=== PATIENT | male | born 1975 | race African-American/Black ===

== ENCOUNTER 2019-08-29 09:43 | Inpatient (IN) | payer SELFPAY ==
[2019-08-29] MEDS ORDERED: Naloxone HCl 0.4 mg/ml Vial ONE (10:14)
[2019-08-29 10:31] LABS: Actual Bicarbonate (HCO3a) 4.5 mEq/L (22-28); Analyzer IN Cardio ER; Base Excess (BEa) -20.4 mEq/L (-2.0 to +3.0); Calcium, Ionized 1.57 mmol/L (1.12-1.30); Carboxyhemoglobin (COHb) 0.2 gm% (0.0-3.0); O2 Tension (PaO2) 139.2 mmHg (80.0-100.0); Potassium - ABG Lab 6.76 mmol/L (3.70-5.30)
[2019-08-29 10:33] LABS: ALV-art Gradient -3.845 (0-20); CO2 Tension 11.5 mmHg (35.0-45.0); Puncture Site RRA; pH, Arterial 7.21 (7.35-7.45)
[2019-08-29 10:40] LABS: #Lymphocytes 0.9 thou/uL (1.20-3.40); %Basophils 0.3 % (0.0-1.0); %Eosinophils 0.2 % (0.0-10.0); %Lymphocytes 6.8 % (21.0-51.0); %Monocytes 7.5 % (0.0-10.0); %Neutrophils 85.3 % (42.0-75.0); Mean Corpuscular HGB CONC 30.3 g/dL (32.0-36.0); Mean Corpuscular Hemoglobin 30.4 pg (27.0-31.0); Mean Platelet Volume 10.2 fL (7.4-10.4); Platelet Count 270 thou/uL (130-400); RBC Distribution Width 12.6 % (11.5-14.5); Red Blood Cell (RBC) Count 5.26 mill/uL (4.70-6.10); White Blood Cell (WBC) Count 12.9 thou/uL (4.8-10.8)
[2019-08-29 10:41] LABS: Bilirubin Negative (Negative); Blood, Urine Trace (Negative); Clarity Clear (Clear); Glucose, Urine (Dipstick) Greater than 1000 mg/dL (Negative); Leukocyte Negative Leu/uL (Negative); Nitrite Negative (Negative); Protein, Urine (Dipstick) Negative (Neg-Trace); RBC/HPF 0-3 HPF (0-3); Squamous Epithelial None Seen HPF (0-3); Urobilinogen Normal mg/dL (Less than 2); WBC/HPF 0-3 HPF (0-3)
[2019-08-29 10:49] LABS: Amphetamine Not Detected (NotDetected); Barbiturates Screen Not Detected (NotDetected); Benzodiazepine Screen Not Detected (NotDetected); Cocaine Metabolite Screen Not Detected (NotDetected); Medtox Control Line Valid? VALID (VALID); Medtox Reader # READER 1; Methadone Not Detected (NotDetected); Methamphetamine Not Detected (NotDetected); Opiate Screen Not Detected (NotDetected); Oxycodone Screen Detected (NotDetected); Phencyclidine (PCP) Not Detected (NotDetected); THC/Cannabinoid Screen Not Detected (NotDetected); Tricyclic Screen Not Detected (NotDetected)
--- NOTE | 2019-08-29 10:51 | CT ---
EXAM: Brain CTWithout contrast: HISTORY: Altered mental status, hypoglycemia COMPARISON: None FINDINGS: Minimal metal artifact. No focal mass or midline shift. No intra or extra-axial hemorrhage. Sinuses and mastoids are clear of acute process. IMPRESSION: No mass or bleed or other significant acute intracranial process.
[2019-08-29 10:54] LABS: Bacteria/HPF None Seen HPF (None Seen)
[2019-08-29 11:11] LABS: Acetaminophen Less than 6.0 mcg/mL (10.0-30.0); Alcohol Less than 10 mg/dL (Less than 10); Salicylate Less than 8.0 mg/dL (15.0-30.0)
[2019-08-29 11:13] LABS: ALT (SGPT) 12 U/L (8-55); AST (SGOT) 8 U/L (5-34); Albumin 4.5 g/dL (3.5-5.0); Alkaline Phosphatase 94 U/L (40-110); BUN (Urea Nitrogen) 33 mg/dL (8.9-20.6); Bilirubin, Total 0.5 mg/dL (0.2-1.2); CK (CPK) 79 U/L (30-200); Calc. Creatinine Clearance 0 mL/min (70-130); Chloride 96 mmol/L (98-107); Estimated GFR-MDRD 21; Protein, Total 7.5 g/dL (6.0-8.3); Sodium 131 mmol/L (136-145)
[2019-08-29 11:16] LABS: Carbon Dioxide Less than 8 mmol/L (22-29); Glucose 1124 mg/dL (70-105); Potassium 6.8 mmol/L (3.5-5.1)
--- NOTE | 2019-08-29 11:34 | RAD ---
PORTABLE CHEST 1 VIEW: Date: 08/29/19 Time: 1024 hours HISTORY: Chest pain. FINDINGS: The heart size is normal. The lungs are expanded without focal areas of consolidation, pneumothoraces , or pleural effusions. IMPRESSION: No radiographic evidence of acute cardiopulmonary process. POS: TPC
[2019-08-29] MEDS ORDERED: HUMULIN R 100 UNITS in Sodium Chloride 0.9% 100 ML IVPB SCH ×2 (12:00→12:15)
[2019-08-29] MEDS ORDERED: HUMULIN R 100 UNITS in Sodium Chloride 0.9% 99 ML IVPB SCH (12:00)
[2019-08-29] MEDS ORDERED: CCU Electrolyte Replacement 1 EACH IVPB ONE (12:10)
[2019-08-29] MEDS ORDERED: Sodium Chloride 0.9% 1,000 ML IV PRN ×4 (12:10)
[2019-08-29] MEDS ORDERED: Dextrose 5 %-0.45 % NaCl 1,000 ML IV PRN (12:10)
[2019-08-29] MEDS ORDERED: D5 1/2 NS w/20 mEq KCL 1,000 ML IV PRN (12:10)
[2019-08-29] MEDS ORDERED: NS 0.9% w/ 20 MEQ KCL 1,000 ML IV PRN ×2 (12:10)
[2019-08-29 12:15] LABS: Phosphorus 6.6 mg/dL (2.3-4.7)
[2019-08-29] MEDS ORDERED: Magnesium 2 GM/50 ML 2 GM in Premix Bag 1 BAG IVPB PRN (12:51)
[2019-08-29] MEDS ORDERED: Potassium Phosphate 9 MMOL in Sodium Chloride 0.9% 100 ML IVPB PRN (12:51)
[2019-08-29] MEDS ORDERED: Magnesium Oxide 400 MG TAB PO PRN ×2 (12:51)
[2019-08-29] MEDS ORDERED: Potassium Chloride 40 MEQ in Premix Bag 1 BAG IVPB PRN (12:51)
[2019-08-29] MEDS ORDERED: CCU ELECTROLYTE REPLACEMENT PROTOCOL FS PRN (12:51)
[2019-08-29] MEDS ORDERED: Potassium Phosphate 15 MMOL in Sodium Chloride 0.9% 250 ML 250 ML IV PRN (12:51)
[2019-08-29] MEDS ORDERED: PHOS-NAK 1 PKT PACK PO PRN ×2 (12:51)
[2019-08-29] MEDS ORDERED: Potassium Phosphate 12 MMOL in Sodium Chloride 0.9% 250 ML 250 ML IV PRN (12:51)
[2019-08-29] MEDS ORDERED: Potassium Chloride 40 MEQ in Sodium Chloride 0.9% 250 ML 250 ML IVPB PRN (12:51)
[2019-08-29] MEDS ORDERED: Potassium Chloride 20 MEQ TAB PO PRN (12:51)
[2019-08-29 13:53] LABS: BUN (Urea Nitrogen) 36 mg/dL (8.9-20.6); Calc. Creatinine Clearance 0 mL/min (70-130); Calcium 11.3 mg/dL (7.8-10.44); Chloride 97 mmol/L (98-107); Estimated GFR-MDRD 25; Potassium 6.5 mmol/L (3.5-5.1); Sodium 130 mmol/L (136-145)
[2019-08-29 14:16] LABS: Lactic Acid 5.1 mmol/L (0.5-2.2)
[2019-08-29 14:16] LABS: Carbon Dioxide Less than 8 mmol/L (22-29); Glucose 1131 mg/dL (70-105)
[2019-08-29 16:45] LABS: Anion Gap 23 mmol/L (10-20); BUN (Urea Nitrogen) 32 mg/dL (8.9-20.6); Calc. Creatinine Clearance 49 mL/min (70-130); Calcium 10.7 mg/dL (7.8-10.44); Carbon Dioxide 10 mmol/L (22-29); Chloride 115 mmol/L (98-107); Estimated GFR-MDRD 35; Potassium 4.6 mmol/L (3.5-5.1); Sodium 143 mmol/L (136-145)
[2019-08-29 16:48] LABS: Glucose 625 mg/dL (70-105)
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
[2019-08-29 20:39] LABS: Anion Gap 20 mmol/L (10-20); BUN (Urea Nitrogen) 24 mg/dL (8.9-20.6); Calc. Creatinine Clearance 64 mL/min (70-130); Calcium 9.6 mg/dL (7.8-10.44); Carbon Dioxide 12 mmol/L (22-29); Chloride 120 mmol/L (98-107); Estimated GFR-MDRD 48; Glucose 316 mg/dL (70-105); Potassium 4.5 mmol/L (3.5-5.1); Sodium 147 mmol/L (136-145)
--- NOTE | 2019-08-29 21:19 | HP ---
PRESENTING COMPLAINT: Nausea, vomiting, and not feeling well. HISTORY OF PRESENT ILLNESS: The patient with a past medical history of diabetes mellitus, hypertension, hyperlipidemia, presented with not feeling well from last 5 to 6 days, associated with nausea and vomiting, and the patient denies any diarrhea or constipation. Also feels mild abdominal discomfort. Denies runny nose, stuffy nose, sore throat. Denies chest pain, but complains of chest fluttering. He has also been complaining of mild generalized weakness, lethargy, and not feeling well. Initial workup in the emergency room showed a blood glucose 1124 with a creatinine of 3.26. No previous labs available in the system, and potassium 6.5. EKG does not show any acute hyperkalemia changes. ABG shows a pH 7.21, bicarb is 8. The patient is being admitted to ICU for DKA management. REVIEW OF SYSTEMS: As mentioned above. PAST MEDICAL HISTORY: As mentioned above. PAST SURGICAL HISTORY: History of right arm surgery. SOCIAL HISTORY: Denies smoking, alcohol abuse, or drug abuse. FAMILY HISTORY: Reviewed and noncontributory. HOME MEDICATIONS: 1. Glucophage. 2. Atorvastatin. 3. Lisinopril. 4. Amlodipine. 5. Aspirin. PHYSICAL EXAMINATION: VITAL SIGNS: Blood pressure 100/50, respiratory rate 16, oxygen saturation 100%, temperature 97.8. GENERAL: The patient is lying in bed comfortably, not in any distress, however, looks weak and lethargic. HEENT: Conjunctivae normal. Oral mucosa dry. NECK: Supple. No JVD. No lymphadenopathy. CHEST: Decreased air entry, bilateral lower lung [place]. No rhonchi. No wheezing. ABDOMEN: Soft, benign. No tender. No visceromegaly. EXTREMITIES: Negative edema of feet. No rash. No cyanosis. LABORATORY DATA: On admission, CMP unremarkable except potassium 6.8, sodium 131, creatinine 3.26, BUN 33, blood glucose is 1124, calcium 12. BMP unremarkable. TSH 0.194. Lactic acid 5.6. UA negative. CBC unremarkable except a white blood cell of 12.9, MCV 100, platelet count 270. Urine drug toxicology positive for oxycodone. Acetaminophen less than 6, salicylate less than 8.0. ABG; 7.21, 11.5, 139. DIAGNOSTIC DATA: Chest x-ray, negative for acute findings. CT brain, negative for acute findings. IMPRESSION: 1. Possible diabetic ketoacidosis. The patient with acidosis and blood glucose of 1124 on BMP. The patient is being on Lantus and Lantus at home with metformin. However, as per patient, he was switched to Lantus, and since then his sugar being on the higher side. We will continue DKA protocol . Continue ICU admission with BMP q.4 hours hourly and blood sugar every hourly. Continue aggressive fluid resuscitation. We will keep the patient n.p.o. currently. 2. Acute renal failure with hyperkalemia. EKG does not show acute hyperkalemia changes. The patient is being on lisinopril and metformin at home. Hold both lisinopril and metformin. We will continue aggressive fluid resuscitation. We will also get Nephrology evaluation. 3. Lactic acidosis. We will continue monitor aggressive fluid resuscitation and monitor the patient, has mild abdominal discomfort on admission. Abdomen does not look acute. We will continue to monitor the patient is not septic. A chest x-ray was negative for acute findings. 4. Hypertension. The patient had a hypotensive episode while EMS brought the patient. Hold antihypertensive medication at present. Continue aggressive fluid resuscitation. The patient is currently voiding urine. We will continue to monitor blood pressure and urine output. 5. Hyperlipidemia. The patient is on statins at home. We will start statins once the patient orally starts taking. 6. Deep venous thrombosis and gastrointestinal prophylaxis. Plan discussed with the patient and nursing staff in detail. Job ID: [id number]
[2019-08-29] MEDS: Famotidine/PF 20 mg/2ml Vial SLOW IVP PRN (22:04)
[2019-08-29] MEDS: Dextrose 5 %-0.45 % NaCl 1,000 ML IV SCH (22:04)
--- NOTE | 2019-08-30 00:21 | CON ---
error Job ID: [id number] MTDD
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
[2019-08-30] MEDS: Dextrose 5 %-0.45 % NaCl 1,000 ML IV SCH ×5 (01:30→20:00)
[2019-08-30 04:23] LABS: Anion Gap 14 mmol/L (10-20); BUN (Urea Nitrogen) 18 mg/dL (8.9-20.6); Calc. Creatinine Clearance 69 mL/min (70-130); Calcium 8.9 mg/dL (7.8-10.44); Carbon Dioxide 13 mmol/L (22-29); Chloride 122 mmol/L (98-107); Estimated GFR-MDRD 52; Glucose 390 mg/dL (70-105); Potassium 4.4 mmol/L (3.5-5.1); Sodium 145 mmol/L (136-145)
[2019-08-30 05:37] LABS: Hemoglobin 14.3 g/dL (14.0-18.0); Mean Corpuscular HGB CONC 33.2 g/dL (32.0-36.0); Mean Corpuscular Hemoglobin 30.8 pg (27.0-31.0); Mean Corpuscular Volume 92.9 fL (78.0-98.0); Platelet Count 205 thou/uL (130-400); RBC Distribution Width 12.3 % (11.5-14.5); Red Blood Cell (RBC) Count 4.64 mill/uL (4.70-6.10); White Blood Cell (WBC) Count 16.4 thou/uL (4.8-10.8)
[2019-08-30 05:47] VITALS: BMI 31.0
[2019-08-30] MEDS ORDERED: FLU VACC QS2019-20(6MOS UP)/PF 60 MCG/0.5 ML SYRINGE IM ONE (09:00)
[2019-08-30] MEDS ORDERED: Prevnar 13-Val Conj/PF 0.5 ML SYRINGE IM ONE (09:00)
[2019-08-30] MEDS: Aspirin 81 mg Enteric Coated Tablet PO SCH (10:09)
[2019-08-30] MEDS: Famotidine/PF 20 mg/2ml Vial SLOW IVP PRN (10:09)
[2019-08-30] MEDS ORDERED: Insulin Regular 300 UNITS/3 ML VIAL ONE (12:53)
[2019-08-30] MEDS ORDERED: Dextrose 5% in Water 1,000 ML IV PRN (12:57)
[2019-08-30] MEDS ORDERED: Dextrose 50% Abboject 50 ML SYRINGE IVP PRN (12:57)
[2019-08-30] MEDS: Insulin Regular 300 UNITS/3 ML VIAL SC PRN ×4 (13:05→23:57)
--- NOTE | 2019-08-30 13:31 | PRG ---
DATE OF SERVICE: 08/30/2019 SUBJECTIVE: This is a 44-year-old gentleman being seen for acute kidney injury. The patient denied nausea, vomiting, or chest pain. OBJECTIVE: See above. The patient is awake and alert, in no acute distress. VITAL SIGNS: Afebrile, pulse 95, breathing 16, blood pressure 128/75. GENERAL APPEARANCE AND MENTAL STATUS: Fair. HEAD/NECK: Normocephalic. Atraumatic. EYES: EOMI. No deformity. EARS: Clear. No ulcers. NOSE: Intact. No lesions. MOUTH: Clear. No discharge. THROAT: Clear. No exudate. LUNGS: Clear. No crackles. CARDIAC: S1, S2. No rub. ABDOMEN: Benign. Bowel sounds positive. GENITALIA/RECTUM: Shi absent. BACK/EXTREMITIES: Edema 0+. NEUROLOGICAL: Alert and motor intact. SKIN: LYMPHATICS: LABORATORY DATA: Labs reviewed. Hemoglobin is 14.3. Creatinine is 1.7. ASSESSMENT AND PLAN: 1. Acute kidney injury, improving. 2. Hypertension, stable. 3. Anemia, stable. No indication for dialysis. I would avoid metformin. Job ID: [id number]
--- NOTE | 2019-08-30 14:28 | PDOC.HOSPP ---
- Subjective Encounter Date: 08/30/19 Encounter Time: 09:00 Subjective: awake, responds well to verbal stimuli - Objective Vital Signs & Weight: Vital Signs (12 hours) Temp Pulse Ox 08/30/19 12:00 99.0 F 08/30/19 07:53 98 08/30/19 07:00 98.6 F 08/30/19 04:00 98.7 F Weight Weight 204 lb 5.896 oz Most Recent Monitor Data Heart Rate from ECG 106 NIBP 165/92 NIBP BP-Mean 116 Respiration from ECG 23 SpO2 100 I&O: 08/29/19 08/30/19 08/31/19 06:59 06:59 06:59 Intake Total 3201 3377 Output Total 2903 775 Balance 5164 2602 Result Diagrams: 08/30/19 05:11 08/30/19 03:28 Additional Labs: Accuchecks 08/30/19 08/30/19 08/30/19 13:01 11:31 10:11 POC Glucose 225 H 254 H 234 H 08/30/19 08/30/19 08/30/19 08:26 07:26 06:25 POC Glucose 243 H 299 H 260 H 08/30/19 08/30/19 08/30/19 04:43 03:26 01:57 POC Glucose 282 H 340 H 322 H 08/30/19 08/29/19 08/29/19 00:12 22:57 21:36 POC Glucose 326 H 258 H 254 H 08/29/19 08/29/19 20:21 19:01 POC Glucose 271 H 375 H Hospitalist ROS - Medication Medications: Active Medications Generic Name Dose Route Start Last Admin Trade Name Jhq PRN Reason Stop Dose Admin Aspirin 81 mg 08/30/19 09:00 08/30/19 10:09 Ecotrin PO 81 mg DAILY CARMENZA Administration Famotidine 20 mg 08/29/19 21:57 08/30/19 10:09 Pepcid SLOW IVP 20 mg Q12H PRN Administration HEARTBURN/INDIGESTION Dextrose/Sodium Chloride 1,000 mls @ 100 mls/hr 08/29/19 22:00 08/30/19 13:04 D5 1/2 Ns IV 1,000 mls .Q10H CARMENZA Administration Insulin Human Regular 0 units 08/30/19 12:57 08/30/19 13:05 Humulin R SC 3 unit .MILD SLIDING PRN Administration MILD SLIDING SCALE Protocol - Exam General Appearance: NAD, awake alert Eye: PERRL, anicteric sclera ENT: no oropharyngeal lesions, dry oral mucosa Neck: supple, no JVD Heart: RRR, no murmur Respiratory: no wheezes, no rales Gastrointestinal: soft, non-tender, non-distended, normal bowel sounds Extremities: no cyanosis, no edema Neurological: cranial nerve grossly intact, no focal deficits Psychiatric: normal affect, A&O x 3 Hosp A/P (1) DM hyperosmolarity type II, uncontrolled Code(s): E11.00 - TYPE 2 DIAB W HYPROSM W/O NONKET HYPRGLY-HYPROS COMA ([facility]); E11.65 - TYPE 2 DIABETES MELLITUS WITH HYPERGLYCEMIA Status: Acute (2) WESTLEY (acute kidney injury) Code(s): N17.9 - ACUTE KIDNEY FAILURE, UNSPECIFIED Status: Acute (3) HTN (hypertension) Code(s): I10 - ESSENTIAL (PRIMARY) HYPERTENSION Status: Chronic Qualifiers: Hypertension type: essential hypertension Qualified Code(s): I10 - Essential (primary) hypertension (4) Dyslipidemia Code(s): E78.5 - HYPERLIPIDEMIA, UNSPECIFIED Status: Chronic (5) Metabolic acidosis Code(s): E87.2 - ACIDOSIS Status: Acute - Plan is on insulin 4u/hr at present start clear liq diet as tolerated finger stick glucose around 250's now continue insulin x 12 hrs and start on lantus 20u bid thereafter [facility] has insurance and it pays for insulin, was compliant with insulins (was switched over to another insulin from lantus and says it didn't go well) renal function is slowly trending down, creatinine around 1.7 continue iv hydration OOB to chair and mobilize in room as tolerated
--- NOTE | 2019-08-30 18:21 | PRG ---
DATE OF SERVICE: 08/30/2019 SUBJECTIVE: Chris Abdul's speech is much more fluent today. OBJECTIVE: VITAL SIGNS: He is afebrile, heart rate in the 90s, blood pressure 143/95, respiratory rate in the teens. LUNGS: Clear. HEART: Regular rhythm. ABDOMEN: Soft. EXTREMITIES: Without edema. LABORATORY DATA: Glucoses have been between 200 and 300. White count 16.4, hemoglobin 14.3, platelets 205,000. Sodium 145, potassium 4.4, chloride 122, bicarb 13, BUN 18. Creatinine 1.73, down from a high of 3.29. Intake and output, positive 5164. IMPRESSION: 1. Lactic acidosis secondary in part to severe intravascular volume depletion. 2. Metformin-induced lactic acidosis cannot be ruled out, so the metformin probably should be held. 3. Mild hyperchloremic acidosis secondary to volume resuscitation. 4. Hyperosmolar hyperglycemic coma. His neurological deficits improved fairly rapidly. PLAN: He has been taken off his insulin drip. There is no evidence that this is diabetic ketoacidosis. He had long-acting insulin administered and can be treated with a sliding scale and continue with volume resuscitation. Job ID: [id number]
[2019-08-30] MEDS: Atorvastatin Calcium 40 MG TAB PO SCH (19:56)
[2019-08-30] MEDS ORDERED: Insulin Glargine 25 UNITS in Pre-Filled Syringe SC SCH (21:00)
[2019-08-31] MEDS: Dextrose 5 %-0.45 % NaCl 1,000 ML IV SCH ×2 (02:12→13:33)
[2019-08-31] MEDS: Insulin Regular 300 UNITS/3 ML VIAL SC PRN ×5 (04:03→20:32)
[2019-08-31 06:41] LABS: Anion Gap 10 mmol/L (10-20); BUN (Urea Nitrogen) 5 mg/dL (8.9-20.6); Calc. Creatinine Clearance 104 mL/min (70-130); Calcium 8.5 mg/dL (7.8-10.44); Carbon Dioxide 22 mmol/L (22-29); Cardiac Risk 4.4 (Less than 4.5); Chloride 111 mmol/L (98-107); Cholesterol 141 mg/dl (< 200 Desired); Estimated GFR-MDRD 80; Glucose 279 mg/dL (70-105); HDL Cholesterol 32 mg/dL (>60 Neg Risk); LDL Cholesterol, Calculated 91 mg/dL; Sodium 140 mmol/L (136-145); Triglycerides 88 mg/dL (Less than 150)
[2019-08-31 06:45] LABS: Potassium 2.9 mmol/L (3.5-5.1)
[2019-08-31] MEDS: Aspirin 81 mg Enteric Coated Tablet PO SCH (08:05)
[2019-08-31] MEDS: Amlodipine 10 MG TAB PO SCH (08:05)
[2019-08-31] MEDS ORDERED: Insulin Glargine 25 UNITS in Pre-Filled Syringe SC SCH (09:00)
[2019-08-31] MEDS ORDERED: glipiZIDE 10 MG TAB PO SCH (11:30)
--- NOTE | 2019-08-31 13:42 | PDOC.HOSPP ---
- Subjective Encounter Date: 08/31/19 Encounter Time: 08:45 Subjective: awake, feels better, has reflex symptoms, no nausea or vomiting tolerating liq diet - Objective Vital Signs & Weight: Vital Signs (12 hours) Temp Pulse BP Pulse Ox 08/31/19 11:00 99.1 F 08/31/19 08:05 88 133/86 08/31/19 07:48 99 08/31/19 07:00 98.6 F 08/31/19 04:00 98.5 F Weight Weight 209 lb 14.081 oz Most Recent Monitor Data Heart Rate from ECG 99 NIBP 149/125 NIBP BP-Mean 133 Respiration from ECG 25 SpO2 99 I&O: 08/30/19 08/31/19 09/01/19 06:59 06:59 06:59 Intake Total 7689 5841 690 Output Total 2735 2225 1000 Balance 5164 3616 -310 Result Diagrams: 08/30/19 05:11 08/31/19 05:25 Additional Labs: Accuchecks 08/31/19 08/31/19 08/31/19 11:22 07:37 04:05 POC Glucose 351 H 232 H 238 H 08/31/19 08/30/19 08/30/19 00:00 19:58 16:18 POC Glucose 251 H 282 H 247 H 08/30/19 13:01 POC Glucose 225 H Hospitalist ROS - Medication Medications: Active Medications Generic Name Dose Route Start Last Admin Trade Name Freq PRN Reason Stop Dose Admin Amlodipine Besylate 10 mg 08/31/19 09:00 08/31/19 08:05 Norvasc PO 10 mg DAILY CARMENZA Administration Aspirin 81 mg 08/30/19 09:00 08/31/19 08:05 Ecotrin PO 81 mg DAILY CARMENZA Administration Atorvastatin Calcium 80 mg 08/30/19 21:00 08/30/19 19:56 Lipitor PO 80 mg HS CARMENZA Administration Insulin Human Regular 0 units 08/30/19 12:57 08/31/19 11:30 Humulin R SC 6 unit .MILD SLIDING PRN Administration MILD SLIDING SCALE Protocol - Exam General Appearance: awake alert Eye: PERRL, anicteric sclera ENT: no oropharyngeal lesions, moist mucosa Neck: supple, no JVD Heart: RRR, no murmur Respiratory: no wheezes, no rales Gastrointestinal: soft, non-tender, non-distended, normal bowel sounds Extremities: no cyanosis, no edema Neurological: cranial nerve grossly intact, no focal deficits Psychiatric: normal affect, A&O x 3 Hosp A/P (1) DM hyperosmolarity type II, uncontrolled Code(s): E11.00 - TYPE 2 DIAB W HYPROSM W/O NONKET HYPRGLY-HYPROS COMA ([facility]); E11.65 - TYPE 2 DIABETES MELLITUS WITH HYPERGLYCEMIA Status: Acute (2) WESTLEY (acute kidney injury) Code(s): N17.9 - ACUTE KIDNEY FAILURE, UNSPECIFIED Status: Resolved (3) HTN (hypertension) Code(s): I10 - ESSENTIAL (PRIMARY) HYPERTENSION Status: Chronic Qualifiers: Hypertension type: essential hypertension Qualified Code(s): I10 - Essential (primary) hypertension (4) Dyslipidemia Code(s): E78.5 - HYPERLIPIDEMIA, UNSPECIFIED Status: Chronic (5) Metabolic acidosis Code(s): E87.2 - ACIDOSIS Status: Resolved - Plan on lantus qhs, glipizide bid, gentle iv hydration, replace potassium renal function and hco3 are almost normal [employer] has insurance and it pays for insulin, was compliant with insulins (was switched over to another insulin from lantus and says it didn't go well) OOB to chair and mobilize in hallway as tolerated dc plan in am if stable
[2019-08-31] MEDS ORDERED: Sodium Chloride 0.9% 1,000 ML IV SCH (13:45)
--- NOTE | 2019-08-31 14:37 | PRG ---
DATE OF SERVICE: 08/31/2019 SUBJECTIVE: This is a 44-year-old gentleman being seen for acute kidney injury. The patient denied nausea, vomiting, or chest pain. OBJECTIVE: CONSTITUTIONAL: On examination, the patient is awake and alert. VITAL SIGNS: Pulse 75, breathing 16, and blood pressure was 127/82. GENERAL APPEARANCE AND MENTAL STATUS: Fair. HEAD/NECK: Normocephalic. Atraumatic. EYES: EOMI. No deformity. EARS: Clear. No ulcers. NOSE: Intact. No lesions. MOUTH: Clear. No discharge. THROAT: Clear. No exudate. LUNGS: Clear. No crackles. CARDIAC: S1, S2. No rub. ABDOMEN: Benign. Bowel sounds positive. GENITALIA/RECTUM: Shi absent. BACK/EXTREMITIES: Edema 0+. NEUROLOGICAL: Alert and motor intact. SKIN: LYMPHATICS: LABORATORY DATA: Reviewed. ASSESSMENT AND PLAN: 1. Acute kidney injury, resolved. 2. Hypertension, stable. 3. Anemia, stable. 4. Hypokalemia, recommend aggressive potassium replacement. I will sign off on this patient. Please reconsult as needed. Job ID: [id number]
[2019-08-31] MEDS ORDERED: Dextrose 5 %-0.45 % NaCl 1,000 ML IV SCH (14:45)
[2019-08-31] MEDS: Potassium Chloride 20 MEQ TAB PO SCH ×2 (16:13→20:33)
[2019-08-31] MEDS: glipiZIDE 10 MG TAB PO SCH (17:08)
--- NOTE | 2019-08-31 20:18 | PRG ---
DATE OF SERVICE: 08/31/2019 SUBJECTIVE: Chris Abdul did well overnight. He is stable to be transferred out of the critical care unit. OBJECTIVE: VITAL SIGNS: Blood pressures have been stable overnight. Heart rate has been in the 70s to 90s. Respiratory rates in the teens. GENERAL: He is very coherent now, and actually can tell in quite a large amount of detailed issues that he had when he was out in [place] in the [facility] with hyperglycemia. LUNGS: Clear. HEART: Regular rhythm. ABDOMEN: Soft. EXTREMITIES: Without edema. LABORATORY DATA: Sodium 140, potassium 2.9, chloride 111, bicarb 22, BUN 5, creatinine 1.19. IMPRESSION: Lactic acidosis secondary to intravascular volume depletion versus metformin. Unfortunately, there is no way to easily sort through this, so he should probably avoid metformin. He did not have diabetic ketoacidosis on presentation. He was hyperosmolar. It is reasonable to place him on Glucotrol now and treating with sliding scale insulin. Moving toward long-acting insulin plus sliding scale when he goes home. Will stay away from metformin at this time. He is stable to move out of the critical care unit. Echocardiogram was done. His ejection fraction is normal. We will probably follow him for one more day after he moves out of the critical care unit and then sign off. Job ID: [id number]
[2019-08-31] MEDS: Atorvastatin Calcium 40 MG TAB PO SCH (20:34)
[2019-08-31] MEDS: Insulin Glargine 15 UNITS in Pre-Filled Syringe 1 EACH SC SCH (20:41)
[2019-09-01] MEDS: Potassium Chloride 20 MEQ TAB PO SCH ×2 (02:10→07:44)
[2019-09-01 04:49] LABS: Anion Gap 11 mmol/L (10-20); BUN (Urea Nitrogen) 5 mg/dL (8.9-20.6); Calc. Creatinine Clearance 131 mL/min (70-130); Calcium 8.4 mg/dL (7.8-10.44); Carbon Dioxide 25 mmol/L (22-29); Chloride 108 mmol/L (98-107); Estimated GFR-MDRD Greater than 90; Glucose 333 mg/dL (70-105); Potassium 3.6 mmol/L (3.5-5.1); Sodium 140 mmol/L (136-145)
[2019-09-01] MEDS: Insulin Regular 300 UNITS/3 ML VIAL SC PRN ×4 (05:46→20:41)
[2019-09-01] MEDS: glipiZIDE 10 MG TAB PO SCH ×2 (07:44→17:25)
[2019-09-01] MEDS: Aspirin 81 mg Enteric Coated Tablet PO SCH (07:44)
[2019-09-01] MEDS: Amlodipine 10 MG TAB PO SCH (07:44)
--- NOTE | 2019-09-01 13:32 | PDOC.HOSPP ---
- Subjective Encounter Date: 09/01/19 Encounter Time: 12:00 Subjective: feels better this morning ate his breakfast and lunch, no nausea is amb in hallway - Objective Vital Signs & Weight: Vital Signs (12 hours) Temp Pulse Resp BP BP Pulse Ox 09/01/19 12:31 98.3 F 84 18 120/72 96 09/01/19 07:49 96 09/01/19 07:44 83 117/72 09/01/19 07:40 98.4 F 84 18 117/72 96 09/01/19 02:12 98.4 F 87 18 126/80 97 Weight Weight 204 lb 3.2 oz Most Recent Monitor Data Heart Rate from ECG 99 NIBP 144/91 NIBP BP-Mean 108 Respiration from ECG 25 SpO2 98 I&O: 08/31/19 09/01/19 09/02/19 06:59 06:59 06:59 Intake Total 5841 2059 Output Total 2225 1900 Balance 3616 159 Result Diagrams: 08/30/19 05:11 09/01/19 04:10 Additional Labs: Accuchecks 09/01/19 09/01/19 08/31/19 10:51 05:27 20:31 POC Glucose 218 H 294 H 215 H 08/31/19 08/31/19 08/29/19 17:14 15:51 15:27 POC Glucose 212 H 223 H Greater than 550 H* 08/29/19 08/29/19 08/29/19 14:21 12:44 10:11 POC Glucose Greater than 550 H* Greater than 550 H* Greater than 550 H* 08/29/19 10:05 POC Glucose Greater than 550 H* Hospitalist ROS - Medication Medications: Active Medications Generic Name Dose Route Start Last Admin Trade Name Freq PRN Reason Stop Dose Admin Amlodipine Besylate 10 mg 08/31/19 09:00 09/01/19 07:44 Norvasc PO 10 mg DAILY CARMENZA Administration Aspirin 81 mg 08/30/19 09:00 09/01/19 07:44 Ecotrin PO 81 mg DAILY CARMENZA Administration Atorvastatin Calcium 80 mg 08/30/19 21:00 08/31/19 20:34 Lipitor PO 80 mg HS CARMENZA Administration Glipizide 10 mg 08/31/19 16:30 09/01/19 07:44 Glucotrol PO 10 mg BID-AC CARMENZA Administration Insulin Glargine 15 units/ 0.15 mls @ 0 mls/hr 08/31/19 21:00 08/31/19 20:41 Miscellaneous Medication SC 0.15 mls HS CARMENZA Administration Insulin Human Regular 0 units 08/30/19 12:57 09/01/19 11:13 Humulin R SC 3 unit .MILD SLIDING PRN Administration MILD SLIDING SCALE Protocol Insulin Human Regular 0 units 08/30/19 12:57 08/31/19 20:32 Humulin R SC 2 unit .BEDTIME SLIDING SC PRN Administration BEDTIME SLIDING SCALE Protocol - Exam General Appearance: NAD, awake alert Eye: PERRL, anicteric sclera ENT: no oropharyngeal lesions, moist mucosa Neck: supple, no JVD Heart: RRR, no murmur Respiratory: no wheezes, no rales Gastrointestinal: soft, non-tender, non-distended, normal bowel sounds Extremities: no cyanosis, no edema Neurological: cranial nerve grossly intact, no focal deficits Psychiatric: normal affect, A&O x 3 Hosp A/P (1) DM hyperosmolarity type II, uncontrolled Code(s): E11.00 - TYPE 2 DIAB W HYPROSM W/O NONKET HYPRGLY-HYPROS COMA ([facility]); E11.65 - TYPE 2 DIABETES MELLITUS WITH HYPERGLYCEMIA Status: Resolved (2) WESTLEY (acute kidney injury) Code(s): N17.9 - ACUTE KIDNEY FAILURE, UNSPECIFIED Status: Resolved (3) HTN (hypertension) Code(s): I10 - ESSENTIAL (PRIMARY) HYPERTENSION Status: Chronic Qualifiers: Hypertension type: essential hypertension Qualified Code(s): I10 - Essential (primary) hypertension (4) Dyslipidemia Code(s): E78.5 - HYPERLIPIDEMIA, UNSPECIFIED Status: Chronic (5) Metabolic acidosis Code(s): E87.2 - ACIDOSIS Status: Resolved (6) DM type 2 (diabetes mellitus, type 2) Status: Chronic Qualifiers: Diabetes mellitus exterminator helper termite insulin use: with exterminator helper termite use - Plan on lantus qhs, glipizide bid, tolerating oral diet this morning. renal function and hco3 are almost normal [employer] has insurance and it pays for insulin, was compliant with insulins (was switched over to another insulin from lantus and says it didn't go well) OOB to chair and mobilize in hallway as tolerated dc plan in am might increase his lantus to bid in am if glucose is still around 200's
[2019-09-01] MEDS: Atorvastatin Calcium 40 MG TAB PO SCH (20:41)
[2019-09-01] MEDS: Insulin Glargine 15 UNITS in Pre-Filled Syringe 1 EACH SC SCH (20:41)
[2019-09-02 04:33] LABS: Anion Gap 9 mmol/L (10-20); BUN (Urea Nitrogen) 6 mg/dL (8.9-20.6); Calc. Creatinine Clearance 144 mL/min (70-130); Calcium 8.6 mg/dL (7.8-10.44); Carbon Dioxide 26 mmol/L (22-29); Chloride 109 mmol/L (98-107); Estimated GFR-MDRD Greater than 90; Glucose 250 mg/dL (70-105); Potassium 3.3 mmol/L (3.5-5.1); Sodium 141 mmol/L (136-145)
[2019-09-02] MEDS: Insulin Regular 300 UNITS/3 ML VIAL SC PRN ×2 (06:26→11:26)
[2019-09-02] MEDS: glipiZIDE 10 MG TAB PO SCH (07:48)
[2019-09-02 08:39] VITALS: BP 96/53; TEMP 97.7
[2019-09-02] MEDS: Amlodipine 10 MG TAB PO SCH (09:04)
[2019-09-02] MEDS: Aspirin 81 mg Enteric Coated Tablet PO SCH (09:04)
--- NOTE | 2019-09-03 06:10 | PQF ---
[employer] Customer Service Security Officer [employer] NAGEL Anderson THOMAS MD [id number] CLINICAL DOCUMENTATION CLARIFICATION FORM: POST DISCHARGE Addendum to original discharge summary date: ____ Late entry note date: __ Encephalopthy secondary to uncontrolled diabetes on admission DATE: 09/03/2019 ATTN: ANGEL SELBY MD Please exercise your independent, professional judgment in responding to the clarification form. Clinical indicators are provided on the bottom of this form for your review Please check appropriate box(s): [ ] Encephalopathy due to DM [ ] AMS [ ] Metabolic Encephalopathy due to DM [ ] Other diagnosis [ ] Unable to determine In addition, please specify: Present on Admission (POA): [ ] Yes [ ] No [ ] Unable to determine For continuity of documentation, please document condition throughout progress notes and discharge summary. Thank You. CLINICAL INDICATORS - SIGNS / SYMPTOMS / LABS N&V , not feeling well - Documented in H&P on 08/29 by Allison Cast Metabolic acidosis 2/2 lactate possibly clucophage - Documented in Consult on 08/29 by ANGEL SELBY MD Non ketotic hyperosmolar hyperglycemia - Documented in Consult on 08/29 by ANGEL SELBY MD Hypercalcemia secondary to intravascular volume depletion - Documented in Consult on 08/29 by ANGEL SELBY MD cephalopathy 2/2 a hyperosmolarity state-Documented in Consult on 08/29 by ANGEL SELBY MD DM hyperosmolarity type 2 - Documented in Hospital PNs on 08/30 by Stephanie [email or web address] he did not have DKA on admission, he was hyperosmolar - Documented in PNs on by Justin Perez [employer] [place] DKA - Documented in H&P on 08/29 by Allison Cast Lactic acidosis - Documented in H&P on 08/29 by Allison Cast Hyperkalemia TREATMENTS: We will continue monitor aggressive fluid resuscitation - Documented in H&P on 08/29 by Allison Cast Try to slowly correct his glucose - Documented in Consult on 08/29 by ANGEL SELBY MD Finger stick glucose around 250 now -Documented in Consult on 08/29 by ANGEL SELBY MD Continue insulin 12 hrs and start Lantus 20u - Documented in Consult on 08/29 by ANGEL SELBY MD (This form is maintained as a part of the permanent medical record) 2014 [employer], [employer]. All Rights Reserved [email or web address] [not provided] MTDD
--- NOTE | 2019-09-03 12:56 | DIS ---
DATE OF ADMISSION: 08/29/2019 DATE OF DISCHARGE: 09/02/2019 DISCHARGE DISPOSITION: Home. PRIMARY DISCHARGE DIAGNOSES: 1. Diabetes mellitus type 2 with hyperosmolarity, resolved. 2. Acute kidney injury on admission, resolved. 3. Hypertension. 4. Dyslipidemia. 5. Metabolic acidosis due to hyperosmolality and acute kidney injury, resolved. PROCEDURES DONE DURING HOSPITALIZATION: CT brain done showed no acute intracranial process. Chest x-ray, no acute cardiopulmonary process. Echo with 2D Doppler showed EF of 60% to 65%. Hemoglobin and hematocrit 14 and 43, platelet count 205, MCV is 100. Initial blood gas done showed a pH of 7.21, pCO2 of 11, PO2 of 139, bicarb was 4.5. Discharge BUN and creatinine are 6 and 0.8. Total cholesterol 141, triglycerides 88, LDL 91, HDL 32. Initial serum glucose was 1124. Serum bicarb was less than 8. Potassium 6.8, BUN 33, creatinine 3.26. Urine drug screen was positive for oxycodone. Plasma alcohol less than 10. DISCHARGE MEDICATIONS: 1. Glipizide 10 mg twice daily. 2. Lantus 15 units subcu at bedtime. 3. Atorvastatin 80 mg p.o. at bedtime. 4. Aspirin 81 mg p.o. daily. 5. Norvasc 10 mg p.o. daily. ALLERGIES: NO KNOWN DRUG ALLERGIES. DISCHARGE PLAN: The patient to follow up with Dr. Ortiz in 1 week. He needs to check fingerstick glucose twice daily and record for a period of 10 days to follow up with Dr. Ortiz. BRIEF COURSE DURING HOSPITALIZATION: The patient initially got hospitalized on the with complaints of nausea, vomiting, and not feeling well. His initial serum glucose was 1124 with a creatinine of 3.26. The patient had severe metabolic acidosis with hyperosmolar state and diabetes mellitus type 2. Mr. Abdul had informed us that he was on Lantus, but had been switched over to another insulin which did not go well with his body per patient. He was placed on IV insulin and aggressive IV hydration in ICU. His electrolytes were slowly corrected. He was on IV insulin drip for 48 hours and was slowly weaned into long-acting insulins along with glipizide. His acute kidney injury has completely resolved. Multiple electrolyte abnormalities have all been resolved. He is ambulating and eating well. His last four fingerstick glucose have ranged less than 250. He is advised to check fingerstick glucose twice daily and record to follow up with Dr. Ortiz, digital intern, here will assist him with his outpatient diabetes as the patient does not have a primary care physician in network with his insurance. His next appointment with his primary care physician is in [place], sometime in October. Please note, I have seen and examined the patient on the day of discharge. Job ID: [id number]
== END 2019-09-02 12:24 | disposition home or self-care (01) | DRG 637 ==
LOC: ERS 09:43 → CCU 15:24 → ONC 08-31 16:44
PROVIDERS: ADMIT Internal Medicine; ATTEND Emergency Medicine
DX: E11.01 Type 2 diabetes mellitus with hyperosmolarity with coma (principal); G93.41 Metabolic encephalopathy; N17.9 Acute kidney failure, unspecified; E87.2 Acidosis; I10 Essential (primary) hypertension; E78.5 Hyperlipidemia, unspecified; E87.5 Hyperkalemia; E11.65 Type 2 diabetes mellitus with hyperglycemia; E83.52 Hypercalcemia; T38.3X5A Adverse effect of insulin and oral hypoglycemic [antidiabetic] drugs, initial encounter; E87.6 Hypokalemia; Z79.82 Long term (current) use of aspirin; Z79.899 Other long term (current) drug therapy; I95.9 Hypotension, unspecified
CPT/HCPCS: 36415; 36416; 70450; 71045; 80048; 80053; 80061; 80306; 80307; 81003; 81015; 82550; 82805; 83605; 83735; 84100; 84443; 84484; 85025; 85027; 93005; 93306; 96360; 96361; 96365; 96366; 96375; 96376; 99292; J1815; J2310; J3490; S0028